=== PATIENT | male | born 1950 ===

== ENCOUNTER 2016-07-21 19:02 | Day surgery (SDC) | payer BC ==
--- NOTE | 2016-07-21 19:10 | NUR ---
Pt arrives to [facility] via w/c direct from [facility]. Ambulates to weight chair and bed. Resp even and non labored on RA. Pt relates history w/o difficulty. Rates abd pain at 3/10; denies needs for medication. "Whatever shot they gave me at the clinic helped a lot." See admission assessment for further details.
[2016-07-21] MEDS ORDERED: SODIUM CHLORIDE FLUSH 10 ML ONE ×2 (19:24→19:59)
[2016-07-21] MEDS ORDERED: oxyCODONE IMMEDIATE RELEASE 5 MG (OXYIR) TAB PO PRN (20:20)
[2016-07-21] MEDS ORDERED: ACETAMINOPHEN 325 MG TAB (TYLENOL) PO PRN (20:20)
[2016-07-21] MEDS ORDERED: ONDANSETRON 2 MG/ML (Z0FRAN) 2 ML VIAL IV PRN (20:20)
[2016-07-21] MEDS ORDERED: NALBUPHINE 10 MG/ML (NUBAIN) 1 ML AMP IV PRN (20:30)
[2016-07-22] VITALS (12 sets, daily range): BP systolic 121–146; BP diastolic 72–92
--- NOTE | 2016-07-22 06:30 | NUR ---
Pt denies pain throughout the night. Rests easily on RA. NS infusing w/o difficulty. OR consent signed.
[2016-07-22] MEDS ORDERED: LACTATED RINGERS 1,000 ML IV ONE ×2 (09:40→09:45)
[2016-07-22] MEDS ORDERED: SODIUM CHLORIDE 50 ML IV ONE (09:47)
[2016-07-22] MEDS ORDERED: SODIUM CHLORIDE FLUSH 10 ML ONE (09:53)
[2016-07-22] MEDS ORDERED: NS FLUSH 10 ML PRN IV (09:55)
[2016-07-22] MEDS ORDERED: NS FLUSH 3 ML PRN IV (09:55)
--- NOTE | 2016-07-22 09:55 | NUR ---
LR up to run at [facility] pre op. Tylenol 1000 mg given pre op as ordered. Had hibiclens shower.
[2016-07-22] MEDS ORDERED: ACETAMINOPHEN 500 MG TAB (TYLENOL) PO ONE (10:00)
[2016-07-22] MEDS ORDERED: PIPERACILLIN/TAZOBACTAM 3.375 GM in SODIUM CHLORIDE 50 ML IV ONE (10:00)
[2016-07-22] MEDS ORDERED: ALFENTANIL 500 MCG/ML (ALFENTA) 5 ML AMP IV ONE (10:06)
[2016-07-22] MEDS ORDERED: PROPOFOL 20 ML IV ONE (10:07)
[2016-07-22] MEDS ORDERED: MIDAZOLAM 2 MG/2 ML (VERSED) VIAL ONE (10:07)
[2016-07-22] MEDS ORDERED: BUPIVACAINE/EPINEPHRINE 0.25%-1:200,000 (MARCAINE) 30 ML VIAL INJ ONE (10:17)
[2016-07-22] MEDS ORDERED: SUCCINYLCHOLINE 20 MG/ML 10 ML VIAL ONE (10:30)
[2016-07-22] MEDS ORDERED: ONDANSETRON 2 MG/ML (Z0FRAN) 2 ML VIAL ONE (10:43)
[2016-07-22] MEDS ORDERED: diphenhydrAMINE 50 MG/ML INJ (BENADRYL) ONE (10:43)
[2016-07-22] MEDS ORDERED: NEOSTIGMINE 1 MG/ML SYRINGE ONE (11:25)
[2016-07-22] MEDS ORDERED: GLYCOPYRROLATE 0.2 MG/ML (ROBINUL) 1 ML VIAL ONE (11:25)
[2016-07-22] MEDS ORDERED: KETOROLAC 60 MG/2 ML (TORADOL) VIAL IM ONE (11:29)
[2016-07-22] MEDS ORDERED: ROCURONIUM 50 MG/5 ML (ZEMURON) VIAL IV ONE (11:47)
[2016-07-22] MEDS ORDERED: morphine INJ 2 MG/ML 1 ML SYRINGE IV PRN (12:00)
--- NOTE | 2016-07-22 12:30 | NUR ---
Returned to 306 via bed from OR. Drowsy, but awakens when VS done. Denies pain. Incisions x 4 present on abdomen. Incisions well approximated with no drainage noted. Takes sips of juice. IV LR running at [facility].
--- NOTE | 2016-07-22 13:40 | NUR ---
Awake. No N/V with juice taken. Continues to doze at intervals. Incisions remain free of drainage. Denies pain.
--- NOTE | 2016-07-22 16:40 | NUR ---
Oxyir 5 mg given for pain 6/10 when up ambulating. States at rest has 0/10. Ate oatmeal and states it tasted good. Verbalizes understanding of dismissal instructions. Walked 1/2 round in [place] with nurse - tolerated well.
--- NOTE | 2016-07-22 17:00 | NUR ---
Dismissed to home via with w/c with . Alert and oriented. Skin w/d. Incisions on abd x 4 well approximated and free of drainage. Resp. even and unlabored. Stable condition.
[2016-07-23] MEDS ORDERED: NS FLUSH 3 ML DAILY IV SCH (09:00)
== END 2016-07-22 17:00 | disposition home or self-care (01) ==
LOC: ASC 19:02 → MED/SURG 19:05 → ASC 07-22 17:00
PROVIDERS: ATTEND Surgery
DX: K80.12 Calculus of gallbladder with acute and chronic cholecystitis without obstruction (principal); N28.1 Cyst of kidney, acquired; F17.220 Nicotine dependence, chewing tobacco, uncomplicated
CPT/HCPCS: 47562; 76700; 86850; 86900; 86901; 87070; 87075; 93005; J0330; J1200; J1885; J2250; J2405; J2710; J3490; J7030; J7120